=== PATIENT | female | born 1955 | race Caucasian/White ===

== ENCOUNTER → 2018-09-09 | Outpatient (CLI) | payer BC | END | disposition home or self-care (01) | LOC: MAMMO 16:10 | DX: Z12.31 Encounter for screening mammogram for malignant neoplasm of breast (principal) ==

== ENCOUNTER → 2020-04-05 | Outpatient (CLI) | payer BC | END | disposition home or self-care (01) | LOC: RAD 16:19 | PROVIDERS: ATTEND Nurse Practitioner Family | DX: R07.81 Pleurodynia (principal) ==

== ENCOUNTER → 2020-05-23 | Outpatient (CLI) | payer BC | END | disposition home or self-care (01) | LOC: MAMMO 08:00 | PROVIDERS: ATTEND Nurse Practitioner Family | DX: Z12.31 Encounter for screening mammogram for malignant neoplasm of breast (principal); Z12.4 Encounter for screening for malignant neoplasm of cervix ==

== ENCOUNTER → 2021-08-17 | Outpatient (CLI) | payer BC ==
[~2021-08-17] MED LIST: MOBIC15 MG PO; VITAMIN C500 M4 PO; VITAMIN D31250 MCG PO; ZINC50 M4 PO; ZOCOR20 MG PO
== END | disposition home or self-care (01) ==
LOC: MAMMO 08:23
PROVIDERS: ATTEND Nurse Practitioner Family
DX: Z12.31 Encounter for screening mammogram for malignant neoplasm of breast (principal)

== ENCOUNTER → 2024-02-19 | Outpatient (CLI) | payer OTHER ==
[2024-02-19 08:02] LABS: BASO # 0.1 10*3/uL (0.0-0.1); BASO % 1.1 % (0.0-1.0); EOS # 0.2 10*3/uL (0.0-0.4); EOS % 4.1 % (1.0-4.0); HEMATOCRIT 41.5 % (37.0-47.0); LYMPH # 2.2 10*3/uL (1.3-4.4); LYMPH % 40.8 % (27.0-41.0); MEAN CELL VOLUME 95.4 fl (81.0-99.0); MEAN CORPUSCULAR HGB 31.3 pg (27.0-31.0); MEAN CORPUSCULAR HGB CONC 32.8 g/dl (33.0-37.0); MEAN PLATELET VOLUME 8.6 fl (9.6-12.3); MONO # 0.5 10*3/uL (0.1-1.0); MONO % 8.6 % (3.0-9.0); NEUT # 2.4 10*3/uL (2.3-7.9); PLATELET COUNT AUTOMATED 348 10*3/uL (130-400); RED BLOOD COUNT 4.35 10*6/uL (4.10-5.10); RED CELL DISTRI WIDTH 13.4 % (0-14.5); WHITE BLOOD COUNT 5.3 10*3/uL (4.8-10.8)
[2024-02-19 08:39] LABS: ALKALINE PHOSPHATASE 102 U/L (46-116); BUN 12 mg/dl (9-23); CHLORIDE 107 mmol/L (98-107); CHOLESTEROL 298 mg/dL (<200); LDL CHOLESTEROL 196 mg/dL (9-159); POTASSIUM 4.4 mmol/L (3.4-5.1); SGPT/ALT 10 U/L (5-49); TRIGLYCERIDES 167 mg/dl (<150)
== END | disposition home or self-care (01) ==
LOC: LAB 07:31
PROVIDERS: ATTEND Nurse Practitioner Family
DX: E78.2 Mixed hyperlipidemia (principal); M54.2 Cervicalgia; G43.701 Chronic migraine without aura, not intractable, with status migrainosus; F41.9 Anxiety disorder, unspecified

== ENCOUNTER → 2024-03-27 | Outpatient (CLI) | payer OTHER | END | disposition home or self-care (01) | LOC: LAB 08:03 | PROVIDERS: ATTEND Nurse Practitioner Family | DX: E78.2 Mixed hyperlipidemia (principal); F41.9 Anxiety disorder, unspecified; R63.5 Abnormal weight gain ==